=== PATIENT | female | born 1975 | race Caucasian/White ===

== ENCOUNTER 2018-03-05 21:56 | Observation (INO) ==
[2018-03-05] MEDS ORDERED: *HR* Labetalol 20 MG/4 ML SYRINGE IVP ONE ×2 (23:04→23:07)
[2018-03-05] MEDS ORDERED: Aspirin 81 MG TAB.CHEW PO ONE (23:07)
--- NOTE | 2018-03-05 23:15 | Emergency Department Note ---
Disposition Clinical Impression: Hypertensive urgency Chest pain Qualifiers: Chest pain type: unspecified Qualified Code(s): R07.9 - Chest pain, unspecified Disposition: Admitted As Inpatient Condition: Fair Time of Disposition: 02:11 General Adult HPI - General Chief complaint: ED Shortness of Breath/Dyspnea Stated complaint: cp/sb Time Seen by Provider: 03/05/18 22:48 Source: patient, family Limitations: no limitations Nursing Notes Reviewed: Yes Vital Signs Reviewed: Yes - History of Present Illness HPI Narrative: 42yo female presents from home for evaluation of multiple complaints. What brought her to the ED was her blood pressure which was measured at home his afternoon was systolic greater than 230. She follows with Dr. Samantha Navarrete, her shop cooper, who told her to come to the emergency department if her systolic blood pressures above 2:30. For the past 2 weeks, patient has had poorly controlled hypertension. She is a history of difficult to control hypertension despite close monitoring and strict medication compliance. She is currently on Coreg, Cozaar, losartan, hydralazine, chlorthalidone. She does have clonidine as needed however, did not take it today because she has horrendous rebound. 3 days ago, patient began having intermittent midsternal dull chest pain which radiates straight to her back as well as interscapular. It spontaneous in onset , lasted approximately 15 minutes, spontaneously resolves. Yesterday, she had a single episode of true syncope while sitting on her couch. She was home alone. She suspects she was out for 60-90 minutes as she was watching an online streaming television show and, when she came to, she was 3 shows head were she had been. She did have prodromal symptoms of dizziness, dyspnea, nausea, tunnel vision. When she awoke, she felt nauseous. 2 days ago, patient's sister and noted the left corner of her mouth appeared to be drooping. They assessed her for stroke and at bedside notes no additional deficits; specifically no slurring of speech, no confusion, no extremity weakness. This same day, patient began having intermittent left arm tingling sensation. It is independent from her chest pain. Spontaneous in onset and resolution. ROS: Positive: As above Negative: Cough, fever, vomiting, abdominal pain, trauma, extremity weakness, changes in vision, neck pain Pain Scale: 7 - Related Data Home Medications Medication Instructions Recorded Confirmed Albuterol Sulfate [Albuterol PRN 03/06/18 Inhaler] Carvedilol [Coreg] 50 mg PO BID 03/06/18 03/06/18 Chlorthalidone [Chlorthalidone] 50 mg PO DAILY 03/06/18 03/06/18 Hydralazine HCl 25 mg PO TID 03/06/18 03/06/18 Losartan Potassium [Cozaar] 100 mg PO DAILY 03/06/18 03/06/18 Ondansetron HCl [Zofran] 4 mg PO PRN 03/06/18 Torsemide [Demadex] 10 mg PO PRN 03/06/18 Vitamin D QWEEK 03/06/18 cloNIDine HCl [CloNIDine HCl] 0.2 mg PO PRN 03/06/18 clonazePAM [Clonazepam] 0.5 mg PO PRN 03/06/18 Allergies Allergy/AdvReac Type Severity Reaction Status Date / Time morphine Allergy See Verified 03/05/18 22:10 Comments nalbuphine [From Nubain] Allergy Hives Verified 03/05/18 22:09 Trimethobenzamide Allergy See Verified 03/05/18 22:09 [From Tigan] Comments All systems ED: reviewed and negative except as stated. Review of Systems: As Per HPI Past Medical History - Past Medical History Medical history: Reports: hypertension Psychiatric history: Reports: no psych history - Social History Smoking Status: Never smoker Smokeless Tobacco Status: No Alcohol use: Reports: none Drug use: Reports: none Physical Exam - General Limitations: no limitations General appearance: alert, in no apparent distress Course Course Narrative: Multiple concerns for this patient. She does have hypertensive urgency. We will look for end organ damage. She also has chest pain with multiple comorbidities. She also has neurologic symptoms. EKG dated 03/05/2018 at 22:19 interpreted as sinus tachycardia with rate of 102. MI 64, QTC 464. Vital Signs Temperature 98.0 F 03/05/18 22:10 Pulse Rate 102 03/05/18 22:10 Respiratory Rate 20 03/05/18 22:10 Blood Pressure 246/153 03/05/18 22:10 O2 Sat by Pulse Oximetry 99 03/05/18 22:10 Temperature 98.0 F 03/05/18 22:10 Pulse Rate 85 03/06/18 03:03 Respiratory Rate 16 03/06/18 03:03 Blood Pressure 165/125 03/06/18 03:03 O2 Sat by Pulse Oximetry 99 03/06/18 03:03 Oxygen Delivery Oxygen Delivery Room Air Medical Decision Making - Lab Data Result diagrams: 03/06/18 00:21 03/05/18 23:17 Lab Results 03/05/18 03/06/18 03/06/18 Range/Units 23:17 00:21 00:21 WBC 12.5 H (4.3-11.1) K/mcL RBC 4.54 (3.82-4.97) M/mcL Hgb 12.8 (11.5-15.4) g/dL Hct 37.5 (35.3-44.9) % MCV 82.6 L (83.0-100.0) fL MCH 28.2 (28.0-33.3) pg MCHC 34.1 (31.6-35.5) g/dL RDW 14.6 H (11.5-14.5) % Plt Count 375 (140-400) K/mcL MPV 9.6 (9.4-12.4) fL Immature Gran % 0.6 (0-4) % Seg Neutrophils % 66.8 % Lymphocytes % 23.9 % Monocytes % 5.7 % Eosinophils % 2.4 % Basophils % 0.6 % Neutrophils # 8.4 (1.6-8.9) K/mcL Lymphocytes # 3.0 (0.6-4.6) K/mcL Monocytes # 0.7 (0.0-1.3) K/mcL Eosinophils # 0.3 (0.0-0.6) K/mcL Basophils # 0.1 (0.0-0.2) K/mcL PT 11.3 (9.4-12.1) Seconds INR 1.0 APTT 31.9 (26.0-36.0) Seconds Sodium 138 (136-145) mEq/L Potassium 3.0 L (3.5-5.1) mEq/L Chloride 103 (98-107) mEq/L Carbon Dioxide 26 (23-29) mEq/L BUN 12 (6-20) mg/dL Creatinine 0.74 (0.60-1.20) mg/dL Est GFR ( Amer) > 60 (> 60) Est GFR (Non-Af Amer) > 60 (> 60) BUN/Creatinine Ratio 16 (6-26) Glucose 116 H (70-105) mg/dL Calculated Osmolality 287 (280-300) Calcium 9.2 (8.6-10.3) mg/dL Troponin I < 0.03 (< 0.04) ng/mL Critical Care Time Critical Care Time: Yes Total Critical Care Time: 35 Attestation: Hypertensive urgency w/ neurological symptoms Attestation Statement - Attestation Attestation: DR Aguilar note: Pt seen conjunction w/ resident Dr Travis Fragoso; please his charting for complete documentation. I spent [id number] time with the patient and I agree with the treatment and disposition. Pt w/ uncontrolled htn and also having a vague collection of neurological sx like ? facial droop per family, vague dizziness; required IV meds for htn in the ER; reports compliance w/ her meds @ home; no chest pain or SOB at the time of my eval; admitted improved to the hospitalist for further obs and testing;
[2018-03-06 00:13] LABS: BUN/Creatinine Ratio 16 (6-26); Blood Urea Nitrogen 12 mg/dL (6-20); Calcium 9.2 mg/dL (8.6-10.3); Carbon Dioxide 26 mEq/L (23-29); Chloride 103 mEq/L (98-107); Glucose 116 mg/dL (70-105); Osmolality,Calculated 287 (280-300); Sodium 138 mEq/L (136-145); eGFR For Non-African Americans > 60 (> 60)
[2018-03-06 00:14] LABS: Troponin I < 0.03 ng/mL (< 0.04)
[2018-03-06 00:44] LABS: Basophils # 0.1 K/mcL (0.0-0.2); Basophils % 0.6 %; Eosinophils # 0.3 K/mcL (0.0-0.6); Eosinophils % 2.4 %; Hematocrit 37.5 % (35.3-44.9); Hemoglobin 12.8 g/dL (11.5-15.4); Immature Granulocytes % 0.6 % (0-4); Lymphocytes % 23.9 %; Mean Corpuscular HGB Conc 34.1 g/dL (31.6-35.5); Mean Corpuscular Hemoglobin 28.2 pg (28.0-33.3); Mean Corpuscular Volume 82.6 fL (83.0-100.0); Mean Platelet Volume 9.6 fL (9.4-12.4); Monocytes # 0.7 K/mcL (0.0-1.3); Monocytes % 5.7 %; Neutrophils # 8.4 K/mcL (1.6-8.9); Platelet Count 375 K/mcL (140-400); Red Blood Count 4.54 M/mcL (3.82-4.97); Red Cell Distribution Width 14.6 % (11.5-14.5); Segmented Neutrophils % 66.8 %
[2018-03-06 00:50] LABS: Prothrombin Time 11.3 Seconds (9.4-12.1)
[2018-03-06 00:52] LABS: Activated Partial Thrombo Time 31.9 Seconds (26.0-36.0)
[2018-03-06] MEDS ORDERED: Isovue-370 500 ML INFUS..BTL IV ONE (02:22)
[2018-03-06] MEDS ORDERED: 0.9 % Sodium Chloride 1,000 ML IVC ONE (02:24)
[2018-03-06] MEDS ORDERED: Naloxone 0.4 MG/ML INJ IVP PRN (04:24)
--- NOTE | 2018-03-06 04:26 | Internal Med History&Physical ---
<Fernanda Martinez M - Last Filed: 03/06/18 05:26> Date of Encounter: 03/06/18 Time of Encounter: 04:26 Internal Medicine - H&P: HPI Chief complaint: high BP Admitted From: Emergency Dept Plans for Post Hospital Care: Home History of present illness: Ms. Good is a 42 year old female history of hypertension requiring multiple agents presented to ED due to elevated BP per cardiology standing orders. She has had two weeks of headache with elevated blood pressure progressively worse until over SBP 210 at home. She has been taking all her medications. She was intermittent chest pain sharp and dull radiated to back; it is consistent with last time BP was this elevated. She came to ED today because of new symptoms of nausea, confusion, and left forearm stabbing pain & numbness. In ED, BP was 246/153 treated with two doses of labetalol and down to 160/93. EKG showed no acute changes and troponin negative. CT Head no acute and chest X- ray mild cardiomegaly with no mediastinum widening. Her symptoms have now resolved and she just feels sleepy. Last she had 2-3 hours of facial drop and dysphasia that resolved. Yesterday she had possible syncopal episode when she lost about 1 hour of time after becoming dizzy and tunnel vision while seated then to wake up later. She denies urinary incontinence, tongue biting or fatigue but was unwitnessed event with similar occurrence once last September. Occasional pedal edema but none recently. PMHx ESA with CPap, HTN denies DM. Significant family history of stroke including sister of aneurysm at age 44 and a father of stroke & CA 61. Both grandmothers also had multiple strokes. Denies tobacco, EtOH or illicit drug use Past Med Surg Social Fam HX - Past Medical History Medical history: hypertension Psychiatric history: no psych history - Past Surgical History Additional surgical history: oophrectomy - Social History Smoking Status: Never smoker Smokeless Tobacco Status: No Alcohol use: none Drug use: none Internal Medicine - H&P: Meds Albuterol Sulfate [Albuterol Inhaler] PRN 03/06/18 [History] Carvedilol [Coreg] 50 mg PO BID 03/06/18 [History] Chlorthalidone [Chlorthalidone] 50 mg PO DAILY 03/06/18 [History] Hydralazine HCl 25 mg PO TID 03/06/18 [History] Losartan Potassium [Cozaar] 100 mg PO DAILY 03/06/18 [History] Ondansetron HCl [Zofran] 4 mg PO PRN 03/06/18 [History] Torsemide [Demadex] 10 mg PO PRN 03/06/18 [History] Vitamin D QWEEK 03/06/18 [History] cloNIDine HCl [CloNIDine HCl] 0.2 mg PO PRN 03/06/18 [History] clonazePAM [Clonazepam] 0.5 mg PO PRN 03/06/18 [History] 3 Allergy/AdvReac Type Severity Reaction Status Date / Time morphine Allergy See Verified 03/05/18 22:10 Comments nalbuphine [From Nubain] Allergy Hives Verified 03/05/18 22:09 Trimethobenzamide Allergy See Verified 03/05/18 22:09 [From Tigan] Comments All Systems PM: A 10-system review of systems was performed and is negative for pertinent findings except as documented above in the HPI. - Constitutional Constitutional: fatigue, no falls, no weakness - EENT Eyes: blurry vision, tunnel vision - Cardiovascular Cardiovascular ROS IM: chest pain, dyspnea, lightheadedness, syncope, no palpitations - Respiratory Respiratory: no cough, no wheezing - Gastrointestinal Gastrointestinal: nausea, no constipation, no diarrhea, no vomiting - Genitourinary Genitourinary: no dysuria, no urinary frequency, no urinary incontinence - Musculoskeletal Musculoskeletal ROS IM: as per HPI, back pain, no muscle weakness - Neurological Neurological ROS: confusion, dizziness, paresthesias, tingling, no convulsions, no focal weakness - Constitutional Vitals: Temp Pulse Resp BP Pulse Ox 98.0 F 85 16 165/125 99 03/05/18 22:10 03/06/18 03:03 03/06/18 03:03 03/06/18 03:03 03/06/18 03:03 General appearance: Present: cooperative, A&O X 3, no acute distress, obese, answers questions appropriately Exam: resting comfortably in bed - Head Head exam: Present: atraumatic, normocephalic - ENT ENT exam: Present: mucous membranes dry, normal oropharynx - Respiratory Respiratory exam: Present: CTAB. Absent: accessory muscle use, rales, wheezes - Cardiovascular Cardiovascular exam: Present: RRR. Absent: gallop, rubs - GI/Abdominal GI/Abdominal exam: Present: normal bowel sounds. Absent: mass, rigid, tenderness - Extremities Exam Extremities exam: Present: full ROM, radial pulses palpable and symmetrical. Absent: pedal edema, tenderness - Neurological Exam Neurological exam: Present: alert, motor sensory deficit, oriented X3, strengths equal and symetr throughout. Absent: pronater drift, facial droop, speech deficit Additional comments: CN 2-12 intact except decrease facial sensation left side, finger to nose and heel to delgadillo intact - Psychiatric Psychiatric exam: Present: normal affect, normal mood Internal Med - H&P Results - Labs CBC & Chem 7: 03/06/18 00:21 03/05/18 23:17 - Impressions ITS Impressions Chest X-Ray 03/06/18 23:07 IMPRESSION: No acute disease. D/ / Puneet Munguia MD / Puneet Munguia MD Interpreting Provider: Puneet Munguia MD Head CT 03/06/18 23:08 IMPRESSION: No acute intracranial abnormality. D/ / Ken Bui MD / Ken Bui MD Interpreting Provider: Ken Bui MD - Assessment and plan (1) Hypertensive emergency, no CHF Current Visit: Yes Status: Acute Assessment and plan: Emergency to due symptoms of organ damage that have now resolved after treated with two dose of Labetalol in ED. - cardiac monitoring - no PRN anti hypertensive No repeat echo at this time; last echo 10-11-17 EF 60-65 with moderate hypertrophy (2) Chest pain Current Visit: Yes Status: Acute Assessment and plan: Negative troponin and no acute changes on EKG - considered trending troponins but unlikely to gear changer as an elevation could be explained as demand ischemia (3) Hypokalemia Current Visit: Yes Status: Acute Assessment and plan: Already repleted in ED 40 meq oral - monitor with repeat BMP (4) DVT prophylaxis Current Visit: Yes Status: Acute Assessment and plan: heparin sq - Time Spent With Patient Total time spent is greater than 50% in coordination of care (as documented) at patient's floor/unit and/or counseling patient: Greater than 35 minutes <Yaneth Tafoya - Last Filed: 03/06/18 06:18> Date of Encounter: 03/06/18 All Systems PM: A 10-system review of systems was performed and is negative for pertinent findings except as documented above in the HPI. - Constitutional Vitals: Temp Pulse Resp BP Pulse Ox 98.0 F 85 16 165/125 99 03/05/18 22:10 03/06/18 03:03 03/06/18 03:03 03/06/18 03:03 03/06/18 03:03 Internal Med - H&P Results - Labs CBC & Chem 7: 03/06/18 00:21 03/05/18 23:17 - Impressions ITS Impressions Chest X-Ray 03/06/18 23:07 IMPRESSION: No acute disease. D/ / Puneet Munguia MD / Puneet Munguia MD Interpreting Provider: Puneet Munguia MD Head CT 03/06/18 23:08 IMPRESSION: No acute intracranial abnormality. D/ / Ken Bui MD / Ken Bui MD Interpreting Provider: Ken Bui MD - Time Spent With Patient Total time spent is greater than 50% in coordination of care (as documented) at patient's floor/unit and/or counseling patient: - Attending Attestation Conner Good is an obese 42-year-old woman with a history of poorly controlled hypertension follows with cardiology and nephrology as an outpatient currently seen to be prescribed at least 5 antihypertensives, strong family history of cardiovascular disease including ruptured cerebral aneurysm due to hypertension and sister and stroke and heart attacks in parents and grandparents. She presents today to the ER as she felt headache, dizziness and chest pain at which time she checked her blood pressure was seen to have a systolic values above 230 previously been advised to come to the ER if this was to occur. On arrival here she was seen to have a BP of 246/153 mmHg and was given a total of 20 mg of labetalol IVP with a subsequent drop to 160/90. Given this precipitous drop she was then put on normal saline to attenuate the effects. Lab work was grossly unremarkable with a negative troponin and a potassium of 3.0. EKG showed normal sinus rhythm with repolarization abnormalities and signs of ventricular hypertrophy. CT was done due to complaints of headache which was grossly unremarkable and chest x-ray showed no widening of her mediastinum or signs of pulmonary vascular congestion. My assessment she was laying comfortably in bed in no acute distress stating that she felt much better and had no complaints at this time. Physical exam remarkable for normal S1/S2 with no murmurs, rubs or gallop rhythm; no wheezing , rales or rhonchi on auscultation; abdomen soft and non-tender to palpation; no signs of peripheral edema on her extremities. She reports taking clonidine as needed but tries to stay away from it to avoid rebound. She reports adherence to her medications but acknowledges that she still remains poorly controlled and was referred to a study at [facility] however due to her weight was not able to qualify. She also reports questionable syncopal episodes of recent. We will admit for hypertensive emergency. Currently clinically and hemodynamically stable since improvement in blood pressure. We will resume her oral agents in the morning. At CT negative for infarcts, EKG not suggestive of ischemia and troponin negative in spite of elevated BP values that potentially would have caused myocardial strain. Advised that she continue to follow with cardiology and nephrology to tend to her blood pressure and perform the necessary studies needed. Equally advised that she obtain screening MRA as an outpatient due to first-degree family member with cerebral aneurysms. Hypokalemia supplemented with 40 mEq of KCl. Heparin subcutaneous for DVT prophylaxis.
[2018-03-06] MEDS: *HR* Heparin 5,000 UNIT/ML VIAL SQ SCH ×3 (06:29→22:42)
[2018-03-06] MEDS: hydrALAZINE 25 MG TABLET PO SCH ×3 (06:29→22:42)
--- NOTE | 2018-03-06 08:06 | Event Note ---
<Jose Elias Ribeiro - Last Filed: 03/06/18 16:54> Date of Encounter: 03/06/18 Time of Encounter: 09:30 S: Ms. Good is a 42 year old female with past medical history of HTN, ESA on cpap who presented to ED for two weeks of headache and elevated bps. She sees Cardiology and Nephrology for history of refractory hypertension. She has been on 4 types of hypertensives for several months, she reports compliance with her meds. She has non-stenotic renal arteries on catheterization and normal parameter plasma osmani/renin ratio. She initially reported headache, sharp chest pain, nausea, mental fogging, and forearm numbness. The ED recorded her bp to be 246/153, treated with 20mg total of IV labetalol. CT head showed no bleed/ infarct, CXR without mediastinal widening, ECG and basic chemistries were unremarkable. Patient was admitted for continued reduction of and management of HTN. At the time of my evaluation, patient reports having no chest discomfort, headache, or vision changes. O: Vitals: systolic 150s for approx 8 hours PHYSICAL EXAM: Head exam: Present: atraumatic, normocephalic Eye exam: Present: pupils equal, conjuntiva pink, sclera anicteric, EOMI Neck exam Present: supple, trachea midline. Absent: lymphadenopathy Respiratory exam: Present: CTAB, normal chest wall excursion. Absent: accessory muscle use, rales, rhonchi, wheezes Cardiovascular exam: Present: RRR, +S1, +S2 Absent: diastolic murmur, gallop, rubs, systolic murmur GI/Abdominal exam: Present: soft, non-tender, no peritoneal signs Extremities exam: Present: warm, radial pulses palpable and symmetrical. Absent : calf tenderness, cyanotic, pedal edema Neurological exam: Present: oriented X3, no focal deficits. Absent: facial droop, speech deficit Skin exam: Present: dry, intact A:/P: (1) Hypertensive emergency, no CHF alterted mental status/encephalopathic on presentation, resolved, no kidney injury, no bleed in imaging, stable vitals Continuing cardiac monitoring, last echo 10-11-17 EF 60-65 with moderate hypertrophy Per clinic chart review, patient has had catheterization which showed no stenotic renal arteries, normal plasma osmani:renin Current plan to continue same dose of home coreg 50 bid, cozaar 100 daily, chlorthalidone 50 daily, hydralazine 50 q8 May increase hydralazine to 100mg q8 tomorrow Patient is established with [facility], apreciate Nephrology recommendations (2) Chest pain Negative troponin and no acute changes on EKG (3) Hypokalemia Repleted in ED 40 meq oral AM labs (4) DVT prophylaxis heparin sq <Guido Santo - Last Filed: 03/06/18 19:07> Date of Encounter: 03/06/18 I examined this patient and my medical decision-making was reviewed with the Resident Physician on 03/06/18. I agree with the documented findings, disposition and treatment plan as described except to the extent set forth below. Ms Good was placed in observation earlier today for hypertensive emergency. Her BP is better controlled at this time. She is up and walking in the halls. Exam Heart reg No wheeze Agree with plan as above and in H&P
[2018-03-06 08:48] LABS: Basophils # 0.1 K/mcL (0.0-0.2); Basophils % 0.6 %; Eosinophils # 0.2 K/mcL (0.0-0.6); Eosinophils % 2.6 %; Hematocrit 36.6 % (35.3-44.9); Hemoglobin 12.4 g/dL (11.5-15.4); Immature Granulocytes % 0.7 % (0-4); Lymphocytes # 2.4 K/mcL (0.6-4.6); Lymphocytes % 27.7 %; Mean Corpuscular HGB Conc 33.9 g/dL (31.6-35.5); Mean Corpuscular Hemoglobin 28.8 pg (28.0-33.3); Mean Corpuscular Volume 84.9 fL (83.0-100.0); Mean Platelet Volume 10.1 fL (9.4-12.4); Monocytes # 0.4 K/mcL (0.0-1.3); Monocytes % 4.5 %; Neutrophils # 5.6 K/mcL (1.6-8.9); Platelet Count 323 K/mcL (140-400); Red Blood Count 4.31 M/mcL (3.82-4.97); Red Cell Distribution Width 14.4 % (11.5-14.5); Segmented Neutrophils % 63.9 %
[2018-03-06 09:07] LABS: BUN/Creatinine Ratio 17 (6-26); Blood Urea Nitrogen 11 mg/dL (6-20); Calcium 9.1 mg/dL (8.6-10.3); Carbon Dioxide 26 mEq/L (23-29); Chloride 106 mEq/L (98-107); Glucose 113 mg/dL (70-105); Osmolality,Calculated 288 (280-300); Potassium 3.2 mEq/L (3.5-5.1); Sodium 139 mEq/L (136-145); eGFR For Non-African Americans > 60 (> 60)
--- NOTE | 2018-03-06 17:13 | Electrocardiograph Report ---
[address] [place] [address] Test Date: 2018-03-05 Pat Name: Conner Good Department: [id number] Room: 2A44 Gender: F [employer]: : 1975 Requested By: Travis Fragoso Order Number: [id number] Reading MD: Alba Jordan Measurements Intervals [place] Rate: 102 P: 52 [place]: 164 QRS: 56 QRSD: 106 T: -75 QT: 356 QTc: 464 Interpretive Statements Sinus tachycardia Possible inferior infarct, old Electronically Signed On 03-06-2018 17:11:29 EDT by Alba Jordan
[2018-03-07] MEDS: *HR* Heparin 5,000 UNIT/ML VIAL SQ SCH ×2 (05:55→13:16)
[2018-03-07] MEDS: hydrALAZINE 25 MG TABLET PO SCH ×2 (05:55→13:16)
[2018-03-07 07:02] LABS: Blood Urea Nitrogen 15 mg/dL (6-20); Calcium 9.4 mg/dL (8.6-10.3); Carbon Dioxide 25 mEq/L (23-29); Chloride 106 mEq/L (98-107); Glucose 127 mg/dL (70-105); Osmolality,Calculated 288 (280-300); Potassium 3.3 mEq/L (3.5-5.1); Sodium 138 mEq/L (136-145)
[2018-03-07 07:29] LABS: BUN/Creatinine Ratio 17 (6-26); eGFR For Non-African Americans > 60 (> 60)
--- NOTE | 2018-03-07 09:07 | Internal Med Progress Note ---
Hospitalist Progress Note - Encounter Date of Encounter: 03/07/18 - Exam Vitals: Temp Pulse Resp BP Pulse Ox 97.4 F L 83 16 155/98 96 03/07/18 08:22 03/07/18 08:22 03/07/18 08:22 03/07/18 08:22 03/07/18 08:37 - Time Spent with Patient Total time spent is greater than 50% in coordination of care (as documented) at patient's floor/unit and/or counseling patient: Internal Medicine: Result - Labs CBC & Chem 7: 03/06/18 08:15 03/07/18 04:01 Labs: BMP 03/06/18 03/07/18 08:15 04:01 Sodium 139 138 Potassium 3.2 L 3.3 L Chloride 106 106 Carbon Dioxide 26 25 BUN 11 15 Creatinine 0.64 0.88 Glucose 113 H 127 H Calcium 9.1 9.4 - ABG Interpretation ABG results: PT/INR, D-dimer PT 11.3 Seconds (9.4-12.1) 03/06/18 00:21 Consult Discharge Plan - Plan Referrals: NONE,PCP [Primary Care Provider] -
--- NOTE | 2018-03-07 09:22 | Discharge Summary ---
<Guido Santo - Last Filed: 03/07/18 15:19> Date of Encounter: 03/07/18 - Discharge Diagnosis (1) Hypertensive emergency Priority: Primary Status: Acute (2) Hypokalemia Priority: Secondary Status: Acute (3) Morbid obesity Priority: Secondary Status: Chronic (4) Generalized anxiety disorder Priority: Secondary Status: Chronic (5) Obstructive sleep apnea of adult Priority: Secondary Status: Chronic (6) Vitamin D deficiency Priority: Secondary Status: Chronic (7) Hypertensive cardiomyopathy Priority: Secondary Status: Chronic Qualifiers: Heart failure presence: without heart failure Qualified Code(s): I11.9 - Hypertensive heart disease without heart failure Hospital course: Ms. Good is a 42 year old female - Time Spent with Patient Total time spent providing and/or coordinating discharge services: 37min - Discharge Medications Prescriptions: Ondansetron ODT [Zofran ODT] 4 mg SL Q6HR PRN #30 tab.rapdis PRN Reason: Nausea Home Medications: Albuterol Sulfate [Albuterol Inhaler] 1 - 2 puff IH Q4H PRN 10/04/15 [History] Torsemide [Demadex] 10 mg PO DAILY PRN 10/04/15 [History] Cholecalciferol (Vitamin D3) [Vitamin D3] 10,000 unit PO TH 03/10/16 [History] Hydralazine HCl 50 mg PO Q8H #90 tablet 01/14/17 [Rx] Carvedilol [Coreg] 50 mg PO BID #120 tablet 10/12/17 [Rx] Losartan Potassium [Cozaar] 100 mg PO DAILY #30 tab 10/12/17 [Rx] Albuterol Sulfate [Albuterol Inhaler] 2 puff IH Q4H PRN 03/06/18 [History] Carvedilol [Coreg] 50 mg PO BID 03/06/18 [History] Chlorthalidone 100 mg PO DAILY 03/06/18 [History] Ergocalciferol (VITAMIN D2) [Vitamin D2] 50,000 unit PO TH 03/06/18 [History] Hydralazine HCl 50 mg PO TID 03/06/18 [History] Losartan Potassium [Cozaar] 100 mg PO DAILY 03/06/18 [History] Ondansetron HCl [Zofran] 4 mg PO Q6H PRN 03/06/18 [History] Torsemide [Demadex] 10 mg PO DAILY PRN 03/06/18 [History] cloNIDine HCl [CloNIDine HCl] 0.2 mg PO TID PRN 03/06/18 [History] clonazePAM [Clonazepam] 0.25 - 0.5 mg PO BID PRN 03/06/18 [History] Ondansetron ODT [Zofran ODT] 4 mg SL Q6HR PRN #30 tab.rapdis 03/07/18 [Rx] Potassium Chloride 10 meq PO DAILY #30 tab 03/07/18 [Rx] Allergies/Adverse Reactions: 3 Allergy/AdvReac Type Severity Reaction Status Date / Time morphine Allergy See Verified 03/07/18 08:29 Comments nalbuphine [From Nubain] Allergy Hives Verified 03/07/18 08:29 Trimethobenzamide Allergy See Verified 03/07/18 08:29 [From Tigan] Comments Date of admission: 03/06/18 02:59 Primary care physician: PCP NONE Consults: 03/06/18 15:24 Consult to Nephrology [CONS] Routine Consulting Provider: [facility] Reason for Consult: Hypertensive emergency (AMS, kidney function intact), hx of refractory hypertension; on 4 antihypertensives coreg, cozaar, chlorthalidone, and hydralazine, did receive labetalol in ED. Consult for review of appropriate HTN meds. Thank you. Call Completed: Yes - Constitutional Vitals: Temp Pulse Resp BP Pulse Ox 97.9 F 96 16 149/89 98 03/07/18 12:22 03/07/18 12:22 03/07/18 12:22 03/07/18 12:22 03/07/18 12:22 - Patient Status Disposition: Home, Self-Care Condition: Fair - Discharge Instructions Instructions: Chronic Hypertension (DC) Follow Up With: Sage Jiang DO [Partnered Physician] - 04/19/18 2:00 pm (Please follow up as schedule...) NONE,PCP [Primary Care Provider] - Additional Instructions: - Patient [facility] at 1:30 Pm -Follow up with [facility] for blood pressure management. - - Attending Attestation I examined this patient and my medical decision-making was reviewed with the Resident Physician on 03/07/18. I agree with the documented findings, disposition and treatment plan as described except to the extent set forth below. Ms Good has been in observation due to uncontrolled HTN. She has improved with current treatment. She is now afebrile and ready for discharge home. She feels at baseline. Exam alert Comfortable Mucus membranes dry Heart reg No wheeze abd soft Plan D/C home today <Rae,Ancelmo - Last Filed: 03/07/18 19:19> - NOTES TO OUTPATIENT PROVIDER Notes to Outpatient Provider: -Continue taking the home antihypertensive medicines. -Follow Up with [facility] in 2-4 weeks Date of Encounter: 03/07/18 Time of Encounter: 10:15 - Discharge Diagnosis (1) Hypertensive emergency, no CHF Priority: Primary Status: Acute Hospital course: Ms. Good is a 42 year old female with a past medical history of hypertension control, multiple antihypertensives who presented to the ED due to elevated blood pressure. Patient endorsed that she had 2 weeks of headache, chest pain, nausea, confusion accompanied with forearm numbness and tingling. She sees [facility] for her hypertension management. Patient's blood pressure was 246/153 in the ED and was treated with 2 doses of labetalol. Her blood pressure came down to 160/93. Her initial workup was negative for any ST -T changes, troponins were negative. During the course of her hospital stay patient was continued on her dose of home medications Coreg 50 twice a day, Cozaar 100 daily, chlorthalidone 50 daily, hydralazine 50 q8h. She was deemed medically stable to be discharged from the hospital today with her most recent blood pressure being 149/89. - Time Spent with Patient Total time spent providing and/or coordinating discharge services: Date of admission: 03/06/18 02:59 Primary care physician: PCP NONE Consults: 03/06/18 15:24 Consult to Nephrology [CONS] Routine Consulting Provider: [facility]/ANNA/ASHLEY/ISIAH Reason for Consult: Hypertensive emergency (AMS, kidney function intact), hx of refractory hypertension; on 4 antihypertensives coreg, cozaar, chlorthalidone, and hydralazine, did receive labetalol in ED. Consult for review of appropriate HTN meds. Thank you. Call Completed: Yes - Constitutional Vitals: Temp Pulse Resp BP Pulse Ox 97.4 F L 83 16 155/98 96 03/07/18 08:22 03/07/18 08:22 03/07/18 08:22 03/07/18 08:22 03/07/18 08:37 General appearance: Present: cooperative, A&O X 3, no acute distress, obese, answers questions appropriately Exam: see below - Head Head exam: Present: atraumatic, normal inspection, normocephalic - Respiratory Additional comments: CTAB, no ronchi, rales - Cardiovascular Additional comments: RRR, no gallops, murmurs or rubs - Patient Status Overall status at discharge: patient is progressing back to baseline - Diet and Activity Activity: resume usual activities as tolerated Diet: low fat, low cholesterol, low salt diet
--- NOTE | 2018-03-07 10:03 | Nephrology Consult Note ---
Date of Encounter: 03/07/18 Time of Encounter: 09:57 Assessment and Plan (1) Accelerated hypertension Current Visit: No Status: Acute Continue current medications at home. Suggest 10 meq Potassium daily. Follow up with Dr. Jiang in 2-4 weeks. (2) Hypokalemia Current Visit: Yes Status: Acute 40 meq's ordered. History of Present Illness - Reason for Consult Consult date: 03/07/18 accelerated hypertension - Chief Complaint chest pain - History of Present Illness 42yo female presents from home for evaluation of multiple complaints. PMH: HTN. Presented to ED for systoltic bp greater than 230. She does see Dr. Samantha Navarrete and was told to come in to ED if SBP is ever greater than 230. Initial BP was 246/153. She did admit to some chest pain and left sided arm/leg pain, but all has subsided with better BP control. She is going to go home today. Would suggest 10 meq of Potassium daily since she is on Chlorthalidone at home. Recommend a follow up with [facility] in 2-[address] Jiang. Past Med Surg Social Fam HX - Past Medical History Medical history: hypertension Psychiatric history: no psych history - Past Surgical History Additional surgical history: oophrectomy - Social History Smoking Status: Never smoker Smokeless Tobacco Status: No Alcohol use: none Drug use: none Medications and Allergies Albuterol Sulfate [Albuterol Inhaler] 1 - 2 puff IH Q4H PRN 10/04/15 [History] Torsemide [Demadex] 10 mg PO DAILY PRN 10/04/15 [History] clonazePAM [Klonopin] 0.5 mg PO BID PRN 10/04/15 [History] Cholecalciferol (Vitamin D3) [Vitamin D3] 10,000 unit PO TH 03/10/16 [History] Spironolactone [Aldactone] 25 mg PO DAILY 03/10/16 [History] amLODIPine [Norvasc] 10 mg PO DAILY 03/10/16 [History] cloNIDine HCl [Clonidine HCl] 0.2 mg PO 1-3XD 09/25/16 [History] Hydralazine HCl 50 mg PO Q8H #90 tablet 01/14/17 [Rx] Ondansetron ODT [Zofran ODT] 4 mg SL Q6HR PRN 02/18/17 [History] Carvedilol [Coreg] 50 mg PO BID #120 tablet 10/12/17 [Rx] Chlorthalidone 50 mg PO DAILY #60 tablet 10/12/17 [Rx] Losartan Potassium [Cozaar] 100 mg PO DAILY #30 tab 10/12/17 [Rx] Albuterol Sulfate [Albuterol Inhaler] 2 puff IH Q4H PRN 03/06/18 [History] Carvedilol [Coreg] 50 mg PO BID 03/06/18 [History] Chlorthalidone [Chlorthalidone] 100 mg PO DAILY 03/06/18 [History] Ergocalciferol (VITAMIN D2) [Vitamin D2] 50,000 unit PO TH 03/06/18 [History] Hydralazine HCl 50 mg PO TID 03/06/18 [History] Losartan Potassium [Cozaar] 100 mg PO DAILY 03/06/18 [History] Ondansetron HCl [Zofran] 4 mg PO Q6H PRN 03/06/18 [History] Potassium Chloride 20 meq PO DAILY 03/06/18 [History] Torsemide [Demadex] 10 mg PO DAILY PRN 03/06/18 [History] cloNIDine HCl [CloNIDine HCl] 0.2 mg PO TID PRN 03/06/18 [History] clonazePAM [Clonazepam] 0.25 - 0.5 mg PO BID PRN 03/06/18 [History] 3 Allergy/AdvReac Type Severity Reaction Status Date / Time morphine Allergy See Verified 03/07/18 08:29 Comments nalbuphine [From Nubain] Allergy Hives Verified 03/07/18 08:29 Trimethobenzamide Allergy See Verified 03/07/18 08:29 [From Tigan] Comments Review of Systems Constitutional: no chills, no fatigue, no fever(s) Cardiovascular: no chest pain, no dyspnea, no edema, no palpitations Respiratory: no dyspnea Gastrointestinal: no diarrhea, no nausea, no vomiting Exam - Vital Signs Vital signs: Initial Vital Signs Temp Pulse Resp BP Pulse Ox 98.0 F 102 20 246/153 99 03/05/18 22:10 03/05/18 22:10 03/05/18 22:10 03/05/18 22:10 03/05/18 22:10 Vital Signs - Last 8 Hours Temp Pulse Resp BP Pulse Ox 03/07/18 08:37 96 03/07/18 08:22 97.4 F L 83 16 155/98 96 03/07/18 04:34 98.1 F 74 15 152/91 94 Intake and Output 03/06/18 03/07/18 03/07/18 23:59 07:59 15:59 Intake Total 600 / 600 0 / 0 Output Total 0 / 0 Balance 600 / 600 0 / 0 Intake: Oral 600 / 600 0 / 0 Output: Urine 0 / 0 Other: # Voids 1 Weight 138.074 kg - General Appearance General appearance: well-developed, well-nourished, obese EENT: ATNC, hearing intact, vision intact Neck: supple Respiratory: clear Cardiology: no edema, normal S1, normal S2 Gastrointestinal: normoactive bowel sounds, no tenderness, no guarding Integumentary: no rash, warm and dry Neurologic: alert and oriented x3 Psychiatric: mood/affect appropriate, cooperative Results - Lab Results 03/06/18 08:15 03/07/18 04:01 Most recent lab results Calcium 9.4 mg/dL (8.6-10.3) 03/07/18 04:01 Magnesium 2.0 mg/dL (1.6-2.6) 03/07/18 04:01 Consult Discharge Plan - Plan Referrals: Jinny Spangler DO [Partnered Physician] - NONE,PCP [Primary Care Provider] -
[2018-03-07 12:25] VITALS: BP 149/89
== END 2018-03-07 14:22 | disposition home or self-care (01) ==
LOC: EMEROOARM 21:56 → 2ANU 21:56 → SUATTDRO 03-06 02:59 → 2ANU 03-06 03:02
PROVIDERS: ADMIT Internal Medicine; ATTEND Internal Medicine

== ENCOUNTER 2021-05-05 22:20 | Observation (INO) ==
[2021-05-05] MEDS ORDERED: Aspirin 325 MG TABLET PO ONE (23:04)
[2021-05-05] MEDS ORDERED: Isovue-370 500 ML BOTTLE IVP ONE (23:27)
[2021-05-05] MEDS: Nitroglycerin 0.4 MG TAB.SUBL SL PRN (23:51)
[2021-05-06 00:23] LABS: Prothrombin Time 11.1 Seconds (9.4-12.1)
[2021-05-06 00:26] LABS: Activated Partial Thrombo Time 27.6 Seconds (26.0-36.0)
[2021-05-06 00:43] LABS: Troponin I 0.07 ng/mL (< 0.04)
[2021-05-06 00:51] LABS: BUN/Creatinine Ratio 18 (6-26); Blood Urea Nitrogen 20 mg/dL (6-20); Calcium 9.4 mg/dL (8.6-10.3); Carbon Dioxide 20 mEq/L (23-29); Chloride 100 mEq/L (98-107); Glucose 368 mg/dL (70-105); Osmolality,Calculated 296 (280-300); Potassium 3.5 mEq/L (3.5-5.1); Sodium 134 mEq/L (136-145); eGFR For African Americans > 60 (> 60); eGFR For Non-African Americans 52 (> 60)
[2021-05-06] MEDS ORDERED: *HR* Ticagrelor 90 MG TABLET ONE (01:04)
[2021-05-06] MEDS ORDERED: *HR* Ticagrelor 90 MG TABLET PO ONE (01:04)
[2021-05-06] MEDS ORDERED: 0.9 % Sodium Chloride 1,000 ML ONE ×3 (01:04→01:32)
[2021-05-06] MEDS ORDERED: *HR* Heparin 5,000 UNIT/ML VIAL ONE (01:04)
[2021-05-06] MEDS ORDERED: *HR* Heparin 5,000 UNIT/ML VIAL IVP ONE (01:05)
[2021-05-06 01:07] LABS: Basophils % 0.1 %; Hematocrit 39.2 % (35.3-44.9); Hemoglobin 12.9 g/dL (11.5-15.4); Immature Granulocytes % 0.6 % (0-4); Lymphocytes # 0.6 K/mcL (0.6-4.6); Lymphocytes % 5.6 %; Mean Corpuscular HGB Conc 32.9 g/dL (31.6-35.5); Mean Corpuscular Hemoglobin 28.8 pg (28.0-33.3); Mean Corpuscular Volume 87.5 fL (83.0-100.0); Monocytes # 0.1 K/mcL (0.0-1.3); Monocytes % 0.9 %; Neutrophils # 10.1 K/mcL (1.6-8.9); Platelet Count 319 K/mcL (140-400); Red Blood Count 4.48 M/mcL (3.82-4.97); Red Cell Distribution Width 14.3 % (11.5-14.5); Segmented Neutrophils % 92.8 %; White Blood Count 10.8 K/mcL (4.3-11.1)
[2021-05-06] MEDS ORDERED: Nitroglycerin 1,000 MCG/5 ML VIAL IV ONE (01:19)
[2021-05-06] MEDS ORDERED: ISOVUE-370 200 ML INFUS..BTL ONE ×2 (01:19→02:01)
[2021-05-06] MEDS ORDERED: *HR* Heparin 10,000 UNIT/10 ML VIAL ONE (01:19)
[2021-05-06] MEDS ORDERED: Heparin 1,000 UNITS/500 mL 500 ML ONE (01:19)
[2021-05-06] MEDS ORDERED: *HR* FentaNYL (PF) 100 MCG/2 ML VIAL ONE (01:32)
[2021-05-06] MEDS ORDERED: *HR* Midazolam HCl 2 MG/2 ML VIAL ONE (01:32)
[2021-05-06] MEDS ORDERED: Furosemide 40 MG/4 ML VIAL ONE (02:01)
[2021-05-06] MEDS ORDERED: Ondansetron 4 MG/2 ML VIAL IVP PRN (03:39)
[2021-05-06] MEDS ORDERED: Naloxone 0.4 MG/ML INJ IVP PRN (03:39)
[2021-05-06] MEDS ORDERED: *HR* Dextrose 50 % in Water (Syg) 50 ML SYRINGE IVP PRN (03:40)
[2021-05-06] MEDS ORDERED: Dextrose Gel 15 GM/37.5 ML TUBE PO PRN ×2 (03:40)
[2021-05-06] MEDS ORDERED: D5% in Water 1,000 ML IVC PRN (03:40)
[2021-05-06] MEDS ORDERED: Nitroglycerin 0.4 MG TAB.SUBL SL PRN (03:42)
[2021-05-06 04:24] LABS: Estimated Average Glucose 111 mg/dl; Hemoglobin A1C 5.5 %
[2021-05-06] MEDS: Insulin LISPRO 300 UNITS/3 ML VIAL SUBQ SCH ×5 (04:27→20:03)
[2021-05-06] MEDS: Insulin DETEMIR 100 UNIT/ML X5UNITS SUBQ SCH ×2 (04:28→21:10)
[2021-05-06] MEDS: niCARdipine 20 MG/200 ML MLS IVC SCH ×4 (04:29→09:25)
[2021-05-06] MEDS ORDERED: Perflutren Lipid Microsphere 1.3 ML in 0.9 % Sodium Chloride 8.7 ML IVP PRN (04:39)
[2021-05-06 05:13] LABS: BUN/Creatinine Ratio 20 (6-26); Blood Urea Nitrogen 21 mg/dL (6-20); Calcium 9.2 mg/dL (8.6-10.3); Carbon Dioxide 24 mEq/L (23-29); Chloride 101 mEq/L (98-107); Glucose 257 mg/dL (70-105); Osmolality,Calculated 292 (280-300); Potassium 3.2 mEq/L (3.5-5.1); Sodium 135 mEq/L (136-145); eGFR For African Americans > 60 (> 60); eGFR For Non-African Americans 57 (> 60)
[2021-05-06] MEDS: Nitroglycerin 0.4 MG TAB.SUBL SL PRN ×2 (07:38→20:03)
[2021-05-06] MEDS: carvediloL 25 MG TABLET PO SCH ×2 (07:52→16:33)
[2021-05-06] MEDS ORDERED: Spironolactone 25 MG TABLET PO SCH (09:00)
[2021-05-06] MEDS: hydrALAZINE 25 MG TABLET PO SCH ×3 (09:47→20:03)
[2021-05-06] MEDS: amLODIPine 5 MG TABLET PO SCH (11:25)
[2021-05-07] MEDS: Insulin LISPRO 300 UNITS/3 ML VIAL SUBQ SCH ×4 (00:27→12:16)
[2021-05-07 05:41] LABS: BUN/Creatinine Ratio 28 (6-26); Blood Urea Nitrogen 33 mg/dL (6-20); Calcium 9.4 mg/dL (8.6-10.3); Carbon Dioxide 28 mEq/L (23-29); Chloride 103 mEq/L (98-107); Glucose 159 mg/dL (70-105); Osmolality,Calculated 297 (280-300); Sodium 138 mEq/L (136-145); eGFR For African Americans > 60 (> 60); eGFR For Non-African Americans 50 (> 60)
[2021-05-07] MEDS: niCARdipine 20 MG/200 ML MLS IVC SCH ×3 (07:31→12:17)
[2021-05-07] MEDS: hydrALAZINE 25 MG TABLET PO SCH ×2 (08:43→14:30)
[2021-05-07] MEDS: amLODIPine 5 MG TABLET PO SCH (08:43)
[2021-05-07] MEDS: carvediloL 25 MG TABLET PO SCH (08:43)
[2021-05-07 11:30] VITALS: BP 153/88; PULSE 72; TEMP 98.1; O2SAT 96
[2021-05-07] MEDS ORDERED: Furosemide 40 MG TABLET PO PRN (13:09)
[2021-05-07] MEDS ORDERED: Budesonide/Formoterol 160/4.5 1 PUFF INH IH SCH (21:00)
[2021-05-08] MEDS ORDERED: Cholecalciferol (D-3) 1,000 UNIT (25MCG) TABLET PO SCH (09:00)
[2021-05-08] MEDS ORDERED: cloNIDine HCL 0.1 MG TABLET PO SCH (09:00)
== END 2021-05-07 14:30 | disposition home or self-care (01) ==
LOC: EMEROOARM 22:20 → 2NNU 22:20 → SUATTDRO 05-06 02:38
PROVIDERS: ADMIT Internal Medicine; ATTEND Family Medicine